=== PATIENT | female | born 1975 | race Asian ===

== ENCOUNTER 2016-07-08 06:39 | Observation (INO) | payer OTHER ==
[~2016-07-08 06:39] MED LIST: AMBIEN5 MG PO; CALCIUM-MAGNES1 EAC6 PO; CLEOCIN HCL150 M1 PO; FISH OIL 1,2001 EAC4; IBUPROFEN800 M1 PO; KEFLEX500 M4 PO; NORCO 5-325 TA1 EACH PO; PRENATAL CAPLE1 EACH PO; PRENATAL1 EACH PO; VITAMIN D2000 UNIT PO; ZOLOFT25 M1 PO; ZOLOFT50 M1 PO; ZOLOFT50 MG PO
[2016-07-08] MEDS ORDERED: PRENATAL VITAM1 EA12 (08:10)
== END 2016-07-08 11:30 ==
LOC: LDR 06:39
PROVIDERS: ADMIT Obstetrics & Gynecology
DX: O9A.213 Injury, poisoning and certain other consequences of external causes complicating pregnancy, third trimester (principal); W07.XXXA Fall from chair, initial encounter; Z03.71 Encounter for suspected problem with amniotic cavity and membrane ruled out; Z3A.36 36 weeks gestation of pregnancy; Z79.899 Other long term (current) drug therapy

== ENCOUNTER 2016-07-24 20:53 | Inpatient (IN) | payer OTHER ==
[~2016-07-24 20:53] MED LIST changes: +PRENATAL VITAM1 EA12
[2016-07-24 23:02] LABS: BASO % 0.8 % (0-2); EOS % 2.8 % (0-7); EOSINOPHIL ABSOLUTE COUNT 0.2 tho/cmm (0.0-0.7); HCT-HEMATOCRIT 32.1 % (34.0-49.0); HGB-HEMOGLOBIN 10.7 gm/dl (12.0-15.5); IMMATURE GRANULOCYTES ABSOLUTE 0.02 tho/cmm (0-0.03); IMMATURE GRANULOCYTES PERCENT 0.4 % (0-0.3); LYMPH % 30.1 % (20-45); LYMPH ABSOLUTE COUNT 1.6 tho/cmm (0.8-4.5); MCHC MEAN CORPUSCULAR HGB CONC 33.3 % (32.0-36.0); MEAN PLATELET VOLUME 9.3 cmc (9.4-12.4); MONO % 9.6 % (0-12); MONOCYTE ABSOLUTE COUNT 0.5 tho/cmm (0.0-1.2); NEUTROPHILS % 56.3 % (40-80); PLATELET COUNT 244 tho/cmm (150-450); RED BLOOD COUNT 3.69 mil/cmm (4.00-5.20); WHITE BLOOD COUNT 5.3 tho/cmm (4.0-10.0)
[2016-07-26 05:33] LABS: BASO % 0.2 % (0-2); EOSINOPHIL ABSOLUTE COUNT 0.1 tho/cmm (0.0-0.7); HCT-HEMATOCRIT 30.4 % (34.0-49.0); IMMATURE GRANULOCYTES ABSOLUTE 0.03 tho/cmm (0-0.03); IMMATURE GRANULOCYTES PERCENT 0.4 % (0-0.3); LYMPH ABSOLUTE COUNT 1.9 tho/cmm (0.8-4.5); MCH (MEAN CORPUSCULAR HGB) 28.9 pg (28.0-32.0); MCHC MEAN CORPUSCULAR HGB CONC 32.9 % (32.0-36.0); MCV (MEAN CELL VOLUME) 87.9 fl (82.0-96.0); MEAN PLATELET VOLUME 9.4 cmc (9.4-12.4); MONO % 6.5 % (0-12); MONOCYTE ABSOLUTE COUNT 0.5 tho/cmm (0.0-1.2); NEUTROPHIL ABSOLUTE COUNT 5.4 tho/cmm (1.6-8.0); NEUTROPHIL-AUTOMATED 5.4 tho/cmm (1.6-8.0); NEUTROPHILS % 67.9 % (40-80); PLATELET COUNT 215 tho/cmm (150-450); RED BLOOD COUNT 3.46 mil/cmm (4.00-5.20); RED CELL DISTRIBUTION WIDTH 14.3 % (12.4-16.4)
[2016-07-27] MEDS ORDERED: IBUPROFEN800 M1 PO (03:19)
[2016-07-27] MEDS ORDERED: NORCO 5-325 TA1 EACH PO (03:20)
== END 2016-07-27 13:45 | DRG 775 ==
LOC: LDR 20:53 → OBGE 07-25 12:55
PROVIDERS: ADMIT Advanced Practice Midwife
PROC: 3E0P7GC Introduction of Other Therapeutic Substance into Female Reproductive, Via Natural or Artificial Opening (ICD-10-PCS; 2016-07-24)
PROC: 10E0XZZ Delivery of Products of Conception, External Approach (ICD-10-PCS; principal; 2016-07-25)
DX: O43.193 Other malformation of placenta, third trimester (principal); O99.344 Other mental disorders complicating childbirth; F32.9 Major depressive disorder, single episode, unspecified; O43.123 Velamentous insertion of umbilical cord, third trimester; O77.0 Labor and delivery complicated by meconium in amniotic fluid; O69.81X0 Labor and delivery complicated by cord around neck, without compression, not applicable or unspecified; F41.9 Anxiety disorder, unspecified; O09.523 Supervision of elderly multigravida, third trimester; Z3A.39 39 weeks gestation of pregnancy; Z37.0 Single live birth
CPT/HCPCS: J2590